=== PATIENT | female | born 1985 | race Caucasian/White ===

== ENCOUNTER → 2017-02-22 13:07 | Outpatient (CLI) | payer MEDICAID, SELFPAY ==
--- NOTE | 2017-02-22 13:30 | US_ITS ---
US thyroid HISTORY: Follow-up goiter ITS.REASON: GOITER ORDERING PHYSICIAN: Scottie Kilpatrick MD PATIENT AGE: 31 years COMPARISON: 11/16/2016 FINDINGS: Thyroid gland was again noted to have a multinodular appearance Right lobe: 4.5 x 1.6 x 1.6 cm with diffuse heterogeneous echogenicity. Left lobe: 4.5 x 1.5 x 1.7 cm with diffuse heterogeneous echogenicity Isthmus: Prominent at 6 mm in thickness Largest discrete nodule on the right is 1.7 x 0.8 cm. Largest discrete nodule in the left 1.5 x 0.8 cm.. Overall no change in the appearance of the thyroid gland. IMPRESSION: No change multinodular goiter
[2017-02-22 15:50] LABS: Thyroid Stimulating Hormone 2.16 uIU/ml (0.358-3.740)
[2017-02-23 07:13] LABS: Thyroid Peroxidase Antibodies 132 IU/mL (0-34)
[2017-02-26 13:40] LABS: Thyroglobulin Level 3.7 IU/mL (0.0-0.9)
[2017-03-02 09:13] LABS: Thyroglobulin by RIA 3.1 ng/mL (.)
== END ==
PROVIDERS: PCP Emergency Medicine; Visit Provider Otolaryngology
DX: E04.9 Nontoxic goiter, unspecified (principal)
CPT/HCPCS: 36415; 76536; 84439; 84443; 84481; 86376; 86800

== ENCOUNTER → 2017-03-15 11:40 | Outpatient (CLI) | payer MEDICAID, SELFPAY ==
[2017-03-15 12:12] LABS: Blood Urea Nitrogen 12 mg/dL (7-18); Creatinine,Serum 0.74 mg/dL (0.55-1.02); Estimated Glomerular Filt Rate 90 ml/min (>60); GFR (African American) 109 ML/MIN (>60)
--- NOTE | 2017-03-15 12:12 | CT_ITS ---
CT soft tissue neck w con INDICATION: ITS.REASON: TRACHEAL COMPRESSION, THYROID NODULE ORDERING PHYSICIAN: Scottie Kilpatrick MD PATIENT AGE: 31 years COMPARISON: Ultrasound of 02/22/2017 TECHNIQUE: Axial images are obtained with contrast. Sagittal and coronal reformatted images are reviewed as well. FINDINGS: The thyroid gland is heterogeneously enlarged on both sides and measures up to 4.4 x 2.6 x 1.3 cm longitudinal, AP, and transverse. The left lobe measures up to 4.8 x 2.1 x 1.3 cm longitudinal AP and transverse. The trachea is very slightly deviated toward the right by approximately 2 mm at the level of the thyroid gland. The trachea at the level of the sternal notch is also deviated toward the right by approximately 4 mm. The esophagus is midline There are scattered small cervical lymph nodes but no evidence of adenopathy in the neck or the superior mediastinum The epiglottis and glottic region are unremarkable. No obvious nasopharyngeal mass. There are small air-fluid levels in the maxillary sinuses bilaterally and mild mucosal thickening in the sphenoid sinuses. IMPRESSION: 1. Bilateral heterogeneously enlarged thyroid gland. 2. The trachea is somewhat deviated toward the right x 2 mm at the level of the thyroid gland and 4 mm at the level of the sternal notch. 3. The esophagus is midline at the level of the thyroid gland and situated to the left of the trachea in the superior mediastinum
--- NOTE | 2017-03-15 13:05 | HMH.ITSHM ---
LEVOTHYROXINE GABAPENTIN
== END ==
PROVIDERS: PCP Emergency Medicine; Visit Provider Otolaryngology
DX: J98.8 Other specified respiratory disorders (principal); E04.1 Nontoxic single thyroid nodule
CPT/HCPCS: 36415; 70491; 82565; 84520; Q9967

== ENCOUNTER 2017-03-24 15:17 | Emergency (ER) | payer MEDICAID, SELFPAY ==
[2017-03-24 15:18] VITALS: BP 145/90; PULSE 84; RESP 16; TEMP 36.6; O2SAT 100; BMI 32.8
--- NOTE | 2017-03-24 15:26 | XR_ITS ---
XR chest 2V Ordering Physician: Heber Rubio MD Patient Age: 31 years: Female HISTORY: ITS.REASON: chest pain Cough with chest pain. TECHNIQUE: PA and lateral chest COMPARISON :PA &. Lateral chest December 2015 Cough FINDINGS All lungs are clear with nothing definitely acute. If aspiration. Diaphragm is down to the anterior fifth and sixth rib. Adequate. Heart, tucker, mediastinal structures satisfactory. Calcified hilar nodes most evident at the right tucker and inferior to the right bronchus region reflect old granulomatous disease. No pneumothorax. No pleural effusion. Chest wall and T-spine unremarkable. Ribs unremarkable on this survey. IMPRESSION: Lungs clear nothing definitely acute . No significant change since previous 2016 CXR o . Old r granulomatous disease again noted.
[2017-03-24 15:35] LABS: Basophils % 0.4 % (0.1-2.0); Eosinophils # 0.1 K/mm3 (0.0-0.4); Eosinophils % 2.1 % (0.1-12.0); Hematocrit 37.7 % (37.0-47.0); Hemoglobin 12.8 g/dL (12.2-16.2); Lymphocytes # 2.1 K/mm3 (0.7-4.5); Lymphocytes % 31.9 K/mm3 (10-50); Mean Corpuscular HGB Conc 33.9 g/dL (31.8-35.4); Mean Corpuscular Hemoglobin 28.3 pg (27.0-31.2); Mean Corpuscular Volume 83.4 fl (81-99); Mean Platelet Volume 7.5 fl (7.4-10.4); Monocytes # 0.4 K/mm3 (0.1-1.0); Monocytes % 5.5 % (1.7-9.3); Neutrophils # 3.9 K/mm3 (1.8-7.8); Neutrophils % 60.1 % (37.0-80.0); Platelet Count 273 K/mm3 (142-424); Red Blood Count 4.52 M/mm3 (4.20-5.40); Red Cell Distribution Width 12.8 % (11.5-17.5); White Blood Count 6.5 K/mm3 (4.8-10.8)
[2017-03-24 16:01] LABS: Alanine Aminotransferase 32 U/L (12-78); Albumin Level 3.6 gm/dL (3.4-5.0); Albumin/Globulin Ratio 1.1 (1.1-1.8); Alkaline Phosphatase 73 U/L (46-116); Anion Gap 11.5 mEq/L (5-15); Aspartate Amino Transferase 24 U/L (15-37); Bilirubin,Total 0.4 mg/dL (0.2-1.0); Blood Urea Nitrogen 14 mg/dL (7-18); CKMB Relative Index 0.9 U/L (0-4.0); Calcium 8.4 mg/dL (8.5-10.1); Carbon Dioxide 26 mmol/L (21.0-32.0); Chloride 106 mmol/L (98-107); Creatine Kinase 54 U/L (26-192); Creatine Kinase MB < 0.5 mg/ml (0.0-3.6); Creatinine Clearance Estimated 115 mL/min (0-300); Creatinine,Serum 0.84 mg/dL (0.55-1.02); Estimated Glomerular Filt Rate 78 ml/min (>60); GFR (African American) 94 ML/MIN (>60); Globulin 3.4 gm/dl (1.3-3.2); Glucose 99 mg/dL (74-106); Potassium 3.5 mmoL/L (3.5-5.1); Sodium 140 mmol/L (136-145); Troponin I < 0.02 ng/ml (0.00-0.06)
--- NOTE | 2017-03-24 16:22 | HMH.EDCP ---
ED Disposition Clinical Impression: Chest pain in adult Disposition: Home, Self-Care Condition on Discharge: Good Instructions: DI for Chest Pain Additional Instructions: call pcp in am for follow up Referrals: Heber Rubio MD [Primary Care Provider] - - Critical Care Critical Care Time: No Attestation: On 03/24/17, the high probability of a clinically significant, sudden or life threatening deterioration of the following system(s) required my full and direct attention, intervention and personal management. The time I documented below is in addition to time spent performing reported procedures but includes the following listed in this critical care notation. Medical Decision Making - Medical Records Medical records reviewed: Yes: I reviewed the patient's medical records. Vital Signs: 03/24/17 15:18 Temperature 97.8 F Temperature Source Oral Pulse Rate [Left Brachial] 84 Respiratory Rate 16 Blood Pressure [Left Arm] 145/90 Blood Pressure Mean [Left Arm] 108 Blood Pressure Source [Left Arm] Automatic Cuff Blood Pressure Position [Left Arm] Sitting 02 Sat by Pulse Oximetry 100 Oxygen Delivery Method Room Air - Lab Data Lab results reviewed: Yes: I reviewed the patient's lab results. Lab Results 03/24/17 15:25: WBC 6.5, RBC 4.52, Hgb 12.8, Hct 37.7, MCV 83.4, MCH 28.3, MCHC 33.9, RDW 12.8, Plt Count 273, MPV 7.5, Neut % (Auto) 60.1, Lymph % (Auto) 31.9, Summers % (Auto) 5.5, Eos % (Auto) 2.1, Baso % (Auto) 0.4, Neut # (Auto) 3.9, Lymph # (Auto) 2.1, Summers # (Auto) 0.4, Eos # (Auto) 0.1, Baso # (Auto) 0.0 03/24/17 15:25: Sodium 140, Potassium 3.5, Chloride 106, Carbon Dioxide 26, Anion Gap 11.5, BUN 14, Creatinine 0.84, Estimated Creat Clear 115, Estimated GFR 78, Est GFR ( Amer) 94, Glucose 99, Calcium 8.4 L, Total Bilirubin 0.4, AST 24, ALT 32, Alkaline Phosphatase 73, Total Creatine Kinase 54, CK-MB (CK-2) < 0.5, CK-MB (CK-2) Rel Index 0.9, Troponin I < 0.02, Total Protein 7.0, Albumin 3.6, Globulin 3.4 H, Albumin/Globulin Ratio 1.1 Result diagrams: 03/24/17 15:25 03/24/17 15:25 - Radiology Data #1 Image(s): Chest Image Reviewed: Yes I reviewed the patient's radiology image Preliminary Findings: Normal/NAD - ECG Data Tracing #1 I reviewed this ECG and interpreted as documented below: Normal Sinus Rhythm: Yes Ischemic changes: non-specific ST-T wave changes - Thong Inquiry Pt receiving controlled substance: No Chest Pain HPI - General Stated Complaint: chest pain Time Seen by Provider: 03/24/17 16:22 Mode of Arrival: Ambulatory Source of Information: Patient, Significant Other, Medical Record Limitations: No Limitations Description of Symptoms (Recalled from ER Triage Doc. by RN): Pt advises she was sitting on the check around 1430 and started having some chest pains that were sharp in nature. Denies that the pain radiates anywhere and it comes and goes. - History of Present Illness HPI narrative: pt with chest pain described as sharp midline each day w/o known ht disease and no radiation - no fever or cough MD complaint: chest pain Onset (ago): day(s) Duration: intermittent Activity at onset: during rest Pain location: epigastric Severity: moderate Quality: sharp Pain radiation: none Exacerbating factors: nothing Risk Factors for CAD: Family Hx of CAD Treatments prior to or on arrival for Cardiac Chest Pain: none - ERICA Score Non-Stemi Age of patient: Less than 65 yrs Number of risk factors for CAD: Presence of less than 3 Prior coronary artery stenosis(seen in coronary angiography): Less than 50% ST-Segment deviation on ECG (more than 1 min): Absent Prior aspirin intake: No ASA in the last 7 days Severe anginal chest pain: Two or more episodes in last 24 hours Elevated cardiac markers(CK-MB or troponin): Absent Non-Stemi Risk Score: 1 - Related Data On Oral Contraceptives: No Home Medications Medication Instructions Recorded Confirmed gabapen
[2017-03-24 17:38] VITALS: BP 145/87; PULSE 69; RESP 16; TEMP 37; O2SAT 98
== END 2017-03-24 17:39 | disposition home or self-care (01) ==
PROVIDERS: Emergency Provider Emergency Medicine; PCP Emergency Medicine
DX: R07.89 Other chest pain (principal); I10 Essential (primary) hypertension; E03.9 Hypothyroidism, unspecified; F17.210 Nicotine dependence, cigarettes, uncomplicated; Z79.899 Other long term (current) drug therapy
CPT/HCPCS: 71046; 80053; 82550; 82553; 84484; 85025; 93005; 99282

== ENCOUNTER → 2017-03-27 09:44 | Outpatient (REF) | payer MEDICAID, SELFPAY ==
[2017-03-27 14:27] LABS: Chol/HDL Ratio 3.8 (1-3.5); Cholesterol 196 mg/dL (140-200); HDL Cholesterol 51 mg/dL (29-89); LDL Cholesterol 130 mg/dL (0-130); Triglycerides 77 mg/dL (30-200); VLDL Cholesterol 15 mg/dL (0-40)
== END ==
LOC: LAB 09:44
PROVIDERS: Visit Provider Emergency Medicine
DX: E03.9 Hypothyroidism, unspecified (principal); R01.1 Cardiac murmur, unspecified
CPT/HCPCS: 80061

== ENCOUNTER → 2017-04-02 13:01 | Outpatient (CLI) | payer MEDICAID, SELFPAY ==
--- NOTE | 2017-04-02 13:03 | CA_ITS ---
PROCEDURE: 2-D M-mode and color Doppler study INDICATIONS FOR THE TEST: Chest painX COPD Heart MurmurX Tobacco Smoking Palpitations Fatigue Syncope Edema Hypertension Diabetes Mellitus Rheumatic Fever SOBXDOE Obesity Hyperlipidemia Family History HD Additional History PATIENT INFORMATION HEIGHT: 60 WEIGHT:171 GENDER: Female B/P:120/80 2-D/M-MODE INTERPRETATION: 2-D MEASUREMENTS OBSERVED VALUES IN CMS Right Ventricular Dimension (RVDd) 2.0 Interventricular Septum (Thickness)(IVsd) .7 Left Ventricular Internal Dimensions(LVIDd) 5.1 Left Ventricular Posterior Wall (Thickness)(LVPWd) .8 Aortic Root 3.0 Aortic Cusp Separation 1.7 Left Atrial Dimensions (LAD) 3.4 2D 1. Left atrium is normal size, left ventricle is normal size, there is no concentric left ventricular hypertrophy, visually estimated ejection fraction 55% with no obvious regional wall motion abnormality. 2. The right atrium is normal size and contractility. 3. The aortic valve, mitral and tricuspid valve are structurally normal. 4. The pulmonic valve leaflets are thickened, leaflets are not well visualized, there appears to be restriction the leaflet mobility. 5. There is trivial pericardial effusion noted DOPPLER INTERROGATION: Doppler interrogation of the aortic, mitral, tricuspid and pulmonic valve reveals increased velocities across the pulmonic valve is 2.2 m/s resulting in a peak gradient of 20 mmHg which represents mild pulmonic stenosis, there is no pulmonic insufficiency. There is mild tricuspid regurgitation noted, calculated right ventricular systolic pressure is 28 mmHg, diastolic parameters are within normal range. CONCLUSION: 1. Normal left ventricular size, preserved left ventricular systolic function, visually estimated ejection fraction 55% with no obvious regional wall motion abnormality, diastolic parameters are within normal range. 2. Mild tricuspid regurgitation, calculated right ventricular systolic pressure is 28 mmHg 3. Thickened and calcified pulmonic valve, as described above, peak gradient across the valve is 20 mmHg which represents mild pulmonic stenosis, there is no significant pulmonic insufficiency seen. 4. Trivial pericardial effusion noted.
== END ==
PROVIDERS: PCP Emergency Medicine; Visit Provider Emergency Medicine
DX: R01.1 Cardiac murmur, unspecified (principal)
CPT/HCPCS: 93306

== ENCOUNTER → 2017-04-04 13:45 | Outpatient (CLI) | payer MEDICAID, SELFPAY ==
[2017-04-04 15:17] LABS: Alanine Aminotransferase 32 U/L (12-78); Albumin Level 3.7 gm/dL (3.4-5.0); Albumin/Globulin Ratio 1.2 (1.1-1.8); Alkaline Phosphatase 71 U/L (46-116); Anion Gap 11.6 mEq/L (5-15); Aspartate Amino Transferase 30 U/L (15-37); Bilirubin,Total 0.4 mg/dL (0.2-1.0); Blood Urea Nitrogen 10 mg/dL (7-18); Calcium 8.6 mg/dL (8.5-10.1); Carbon Dioxide 27 mmol/L (21.0-32.0); Chloride 106 mmol/L (98-107); Creatinine,Serum 0.71 mg/dL (0.55-1.02); Estimated Glomerular Filt Rate 95 ml/min (>60); GFR (African American) 115 ML/MIN (>60); Globulin 3.2 gm/dl (1.3-3.2); Glucose 86 mg/dL (74-106); Potassium 3.6 mmoL/L (3.5-5.1); Sodium 141 mmol/L (136-145); Total Protein,Serum 6.9 gm/dL (6.4-8.2)
[2017-04-04 15:32] LABS: HCG Qualitative, Serum Negative (Negative)
[2017-04-04 15:37] LABS: Hemoglobin 12.8 g/dL (12.2-16.2); Red Blood Count 4.56 M/mm3 (4.20-5.40); White Blood Count 6.2 K/mm3 (4.8-10.8)
[2017-04-04 15:38] LABS: Basophils % 0.7 % (0.1-2.0); Eosinophils % 1.4 % (0.1-12.0); Hematocrit 38.7 % (37.0-47.0); Mean Corpuscular HGB Conc 33.1 g/dL (31.8-35.4); Mean Corpuscular Volume 84.8 fl (81-99); Mean Platelet Volume 8.1 fl (7.4-10.4); Neutrophils % 60.4 % (37.0-80.0); Platelet Count 258 K/mm3 (142-424)
[2017-04-04 15:40] LABS: Lymphocytes # 1.9 K/mm3 (0.7-4.5); Lymphocytes % 33.1 K/mm3 (10-50); Neutrophils # 3.7 K/mm3 (1.8-7.8)
[2017-04-04 15:41] LABS: Eosinophils # 0.1 K/mm3 (0.0-0.4); Monocytes # 0.4 K/mm3 (0.1-1.0)
== END ==
PROVIDERS: PCP Emergency Medicine; Visit Provider Otolaryngology
DX: Z01.810 Encounter for preprocedural cardiovascular examination (principal); Z01.812 Encounter for preprocedural laboratory examination
CPT/HCPCS: 36415; 80053; 84703; 85025

== ENCOUNTER → 2017-04-19 10:32 | Outpatient (CLI) | payer MEDICAID, SELFPAY ==
[2017-04-19 11:09] LABS: Calcium 8.7 mg/dL (8.5-10.1); Free T4 (Free Thyroxine) 1.75 ng/dl (0.76-1.46); Thyroid Stimulating Hormone 0.41 uIU/ml (0.358-3.740)
== END ==
PROVIDERS: Visit Provider Otolaryngology
DX: Z98.890 Other specified postprocedural states (principal)
CPT/HCPCS: 36415; 82310; 84439; 84443

== ENCOUNTER → 2017-05-14 14:18 | Outpatient (CLI) | payer MEDICAID, SELFPAY ==
[2017-05-14 15:39] LABS: T4 (Thyroxine) 6.1 ug/dl (4.7-13.3); Thyroid Stimulating Hormone 7.23 uIU/ml (0.358-3.740)
== END ==
PROVIDERS: Visit Provider Otolaryngology
DX: E03.9 Hypothyroidism, unspecified (principal)
CPT/HCPCS: 36415; 84436; 84443

== ENCOUNTER → 2017-07-04 13:44 | Outpatient (CLI) | payer MEDICAID, SELFPAY ==
[2017-07-04 13:47] LABS: Microscopic, Urine URINE MICROSCOPIC (MICROSCOPIC)
[2017-07-04 14:07] LABS: Appearance,Urine CLEAR (Clear); Bilirubin,Urine Negative (Negative); Blood, Urine 2+ (Negative); Color,Urine YELLOW (Yellow); Glucose,Urine (UA) Negative (Negative); Ketones,Urine Negative (Negative); Leukocyte Esterase,Urine TRACE (Negative); Nitrate,Urine Negative (Negative); Protein,Urine Negative (Negative); Specific Gravity, Urine <= 1.005 (1.005-1.030)
[2017-07-04 14:10] LABS: Urine Pregnancy, HCG Qual. Negative (Negative)
[2017-07-04 14:13] LABS: Basophils % 0.3 % (0.1-2.0); Eosinophils # 0.1 K/mm3 (0.0-0.4); Eosinophils % 2.1 % (0.1-12.0); Hematocrit 40.3 % (37.0-47.0); Hemoglobin 13.5 g/dL (12.2-16.2); Lymphocytes # 2.1 K/mm3 (0.7-4.5); Lymphocytes % 34.7 K/mm3 (10-50); Mean Corpuscular HGB Conc 33.5 g/dL (31.8-35.4); Mean Corpuscular Hemoglobin 27.1 pg (27.0-31.2); Mean Corpuscular Volume 80.8 fl (81-99); Mean Platelet Volume 7.1 fl (7.4-10.4); Monocytes # 0.3 K/mm3 (0.1-1.0); Monocytes % 4.9 % (1.7-9.3); Neutrophils # 3.5 K/mm3 (1.8-7.8); Neutrophils % 57.9 % (37.0-80.0); Platelet Count 321 K/mm3 (142-424); Red Blood Count 4.99 M/mm3 (4.20-5.40); Red Cell Distribution Width 13.2 % (11.5-17.5)
[2017-07-04 14:28] LABS: Bacteria,Urine Trace /lpf; RBC,Urine Occasional #/hpf (0-3); WBC,Urine Occasional #/hpf (0-3)
[2017-07-04 15:15] LABS: Alanine Aminotransferase 17 U/L (12-78); Albumin Level 3.9 gm/dL (3.4-5.0); Albumin/Globulin Ratio 1.1 (1.1-1.8); Alkaline Phosphatase 79 U/L (46-116); Anion Gap 13.3 mEq/L (5-15); Aspartate Amino Transferase 23 U/L (15-37); Bilirubin,Total 0.6 mg/dL (0.2-1.0); Blood Urea Nitrogen 7 mg/dL (7-18); Calcium 9.3 mg/dL (8.5-10.1); Carbon Dioxide 27 mmol/L (21.0-32.0); Chloride 103 mmol/L (98-107); Creatinine,Serum 0.83 mg/dL (0.55-1.02); Estimated Glomerular Filt Rate 79 ml/min (>60); GFR (African American) 96 ML/MIN (>60); Globulin 3.5 gm/dl (1.3-3.2); Glucose 91 mg/dL (74-106); Potassium 4.3 mmoL/L (3.5-5.1); Sodium 139 mmol/L (136-145); Total Protein,Serum 7.4 gm/dL (6.4-8.2)
== END ==
PROVIDERS: Visit Provider Obstetrics & Gynecology
DX: Z01.818 Encounter for other preprocedural examination (principal); N93.8 Other specified abnormal uterine and vaginal bleeding
CPT/HCPCS: 36415; 80053; 81001; 81025; 85025

== ENCOUNTER → 2017-08-17 10:55 | Outpatient (CLI) | payer MEDICAID, SELFPAY ==
[2017-08-17 13:06] LABS: Free T4 (Free Thyroxine) 1.62 ng/dl (0.76-1.46); Thyroid Stimulating Hormone 0.05 uIU/ml (0.358-3.740)
== END ==
PROVIDERS: Visit Provider Otolaryngology
DX: E03.9 Hypothyroidism, unspecified (principal)
CPT/HCPCS: 36415; 84439; 84443

== ENCOUNTER → 2017-11-11 09:50 | Outpatient (CLI) | payer MEDICAID, SELFPAY ==
[2017-11-11 09:53] LABS: Microscopic, Urine URINE MICROSCOPIC (MICROSCOPIC)
[2017-11-11 10:08] LABS: Basophils % 0.7 % (0.1-2.0); Eosinophils # 0.2 K/mm3 (0.0-0.4); Eosinophils % 2.6 % (0.1-12.0); Hematocrit 40.1 % (37.0-47.0); Hemoglobin 13.1 g/dL (12.2-16.2); Lymphocytes # 1.6 K/mm3 (0.7-4.5); Lymphocytes % 26.3 K/mm3 (10-50); Mean Corpuscular HGB Conc 32.7 g/dL (31.8-35.4); Mean Corpuscular Hemoglobin 26.5 pg (27.0-31.2); Mean Platelet Volume 6.8 fl (7.4-10.4); Monocytes # 0.4 K/mm3 (0.1-1.0); Monocytes % 5.9 % (1.7-9.3); Neutrophils # 3.9 K/mm3 (1.8-7.8); Neutrophils % 64.5 % (37.0-80.0); Platelet Count 340 K/mm3 (142-424); Red Blood Count 4.96 M/mm3 (4.20-5.40); Red Cell Distribution Width 13.6 % (11.5-17.5); White Blood Count 6.1 K/mm3 (4.8-10.8)
[2017-11-11 10:35] LABS: Appearance,Urine CLEAR (Clear); Bilirubin,Urine Negative (Negative); Blood, Urine 1+ (Negative); Color,Urine YELLOW (Yellow); Glucose,Urine (UA) Negative (Negative); Ketones,Urine Negative (Negative); Leukocyte Esterase,Urine Negative (Negative); Nitrate,Urine Negative (Negative); PH,Urine 8.5 (5.0-8.5); Protein,Urine Negative (Negative); Specific Gravity, Urine 1.015 (1.005-1.030)
[2017-11-11 11:02] LABS: Bacteria,Urine Trace /lpf; Squamous Epithelial Cell,Urine Occasional #/hpf (0-5)
[2017-11-11 11:22] LABS: HCG Qualitative, Serum Negative (Negative)
[2017-11-11 11:27] LABS: Alanine Aminotransferase 27 U/L (12-78); Albumin/Globulin Ratio 1.1 (1.1-1.8); Alkaline Phosphatase 98 U/L (46-116); Anion Gap 12.2 mEq/L (5-15); Aspartate Amino Transferase 15 U/L (15-37); Bilirubin,Total 0.4 mg/dL (0.2-1.0); Blood Urea Nitrogen 12 mg/dL (7-18); Carbon Dioxide 28 mmol/L (21.0-32.0); Chloride 106 mmol/L (98-107); Creatinine,Serum 0.93 mg/dL (0.55-1.02); Estimated Glomerular Filt Rate 69 ml/min (>60); GFR (African American) 84 ML/MIN (>60); Globulin 3.8 gm/dl (1.3-3.2); Glucose 97 mg/dL (74-106); Potassium 4.2 mmoL/L (3.5-5.1); Sodium 142 mmol/L (136-145); Total Protein,Serum 7.8 gm/dL (6.4-8.2)
== END ==
PROVIDERS: PCP Emergency Medicine; Visit Provider Obstetrics & Gynecology
DX: Z01.818 Encounter for other preprocedural examination (principal); N93.8 Other specified abnormal uterine and vaginal bleeding
CPT/HCPCS: 36415; 80053; 81001; 84703; 85025

== ENCOUNTER 2017-11-14 06:04 | Observation (INO) ==
--- NOTE | 2017-11-14 06:48 | Progress Note ---
[facility] Anesthesia Checklist - Structural Data Admitted From: Home Planned Operative Procedure/s: [facility] Consent for Planned Operative Procedure(s) Verified: Yes - Airway Assessment C-Spine Mobility Assessed: Yes TMJ Mobility Assessed: Yes Dentition: Edentulous - Neurological Assessment Level of Consciousness: Awake, Alert, Appropriate - Anesthesia Plan Anesthesia Risk discussed: Yes Anesthesia Plan: Verified ASA Class: II Anesthesia Type: General [facility] History I have reviewed the patient's past medical history: Yes Medical History: Reports:: Hypertension Denies:: Cancer, Diabetes Mellitus Type 1, Diabetes Mellitus Type 2, Internal Pacemaker, MRSA, Seizures Other Medical History: Reports: Hypothyroidism, Other. Denies: Blood Transfusion Reaction (N/A) Laterality Cases: Bilateral: Other Other Surgeries: Yes: Cardiac Surgery, Thyroidectomy, Other. No: Pacemaker Amputation: No Fractures: No - *Social History Educational Level: Attended Grade School Smoking Status: Never smoker Alcohol Intake: never Alcohol Intake Frequency:: other Substance Use Type: denies use Occupational Status: unemployed Housing: apartment Household Members: significant other - Psychiatric History Expresses thoughts of harming self/others: None Suicide Plan Description: No Plan *Family Hx:: Cancer, Diabetes, Heart Attack, Thyroid Disorder, Hypertension
--- NOTE | 2017-11-14 08:38 | Operative Note ---
Date of procedure: 11/14/17 Pre-op Diagnosis:: Dysfunctional uterine bleeding Post-op Diagnosis:: 1. Dysfunctional uterine bleeding. 2. Cervical polyp. Procedure performed:: Total vaginal hysterectomy. Surgeon:: Sampson Hamilton MD Proofing Machine Operator(s):: REYNOLD Woodward GASTROENTEROLOGY NURSE:: Other (MIRTHA Rodriguez) Anesthesia: GETA Estimated blood loss (mL): 300 Operative findings:: 1. Cervical polyp. 2. Dysfunctional uterine bleeding. Operative note:: After the patient was prepped and draped in usual fashion and general anesthesia was administered, examination under anesthesia revealed a boggy anteverted uterus, with no adnexal masses. A weighted speculum was placed within the posterior fourchette of the vagina, and the cervix was grasped with a double- tooth tenaculum and retracted toward the introitus. The cervix was circumcised with a knife, and the vaginal mucosa was sharply and bluntly dissected free. A posterior colpotomy incision was made with Arnaud scissors, and the long lip of the weighted speculum was placed within the posterior peritoneum. The uterosacral ligaments on either side were Dhruv clamped, cut, and Dhruv sutured with #1 Vicryl, as were the cardinal ligaments and uterine vessels. The uterus was then flipped anteriorly and the ovarian ligaments were cross-clamped and cut, thus removing the uterine specimen. These pedicles were Dhruv sutured and then free-tied with #1 Vicryl. The tubes and ovaries were inspected and found to be normal, and remain in situ.The posterior vaginal cuff was then run and locked for hemostasis and to reduce the enterocoele, in a Montoya fashion. The anterior peritoneum was grasped with a long Allis clamp, and closed with a running pursestring suture of 0 Vicryl, and pulled tight. The vaginal cuff was closed with an anteroposterior running lock suture of #1 Vicryl. The instruments were removed. The sponge and needle counts correct. The urine was clear in Lake catheter. The estimated blood loss was 300 cc. The patient tolerated the procedure well, and was taken to PACU in excellent condition. She will be observed overnight. Condition: stable Disposition: PACU Specimens:: Uterus Complications:: None
--- NOTE | 2017-11-14 08:46 | Progress Note ---
[facility] Anesthesia Record Part I Intake, IV Amount: 1,000 Estimated blood loss (mL): 250 Urine output (mL): 500 Blood Products used (#): none Blood Pressure: 133/102 SaO2: 96 Pulse Rate: 103 Respiratory Rate: 10 Temperature: 97.7 F Patient is:: Drowsy, Nasal O2, Oral/Nasal airway, Stable Stable to PACU at:: 08:40
--- NOTE | 2017-11-14 08:47 | Progress Note ---
[facility] Anesthesia Record Part II Discharge Time: 09:10 Destination: Medical Surgical Department PACU nurse assessment reviewed?: Yes Patient Condition:: Good Anesthesia Complications:: None
[2017-11-14 09:49] LABS: Hematocrit 34.2 % (37.0-47.0); Hemoglobin 11.2 g/dL (12.2-16.2)
--- NOTE | 2017-11-14 13:05 | Progress Note ---
Internal Medicine - PN: Subj *Date: 11/14/17 *Time: 13:04 (This is day of surgery. Surgery has been explained to the karan ent. She is afebrile. Vital signs the. Urine output is good. Impression: Stable.) Exam Vital signs and Labs for Last 24 Hours: Temp Pulse Resp BP Pulse Ox 97.1 F L 84 16 120/86 96 11/14/17 12:00 11/14/17 12:41 11/14/17 12:41 11/14/17 12:41 11/14/17 12:41 Laboratory Results - last 24 hr 11/14/17 09:35: Hgb 11.2 L, Hct 34.2 L I & O for Last 24 hours: Intake & Output 11/12/17 11/13/17 11/14/17 11/15/17 11:59 11:59 11:59 11:59 Intake Total 1310 / 1310 Output Total 550 / 550 Balance 760 / 760 Weight 170 lb
[2017-11-15 06:43] LABS: Hematocrit 30.5 % (37.0-47.0); Hemoglobin 10.1 g/dL (12.2-16.2)
--- NOTE | 2017-11-15 07:08 | Progress Note ---
Internal Medicine - PN: Subj *Date: 11/15/17 *Time: 07:05 (This is postop day 1. The patient is afebrile. Vital signs st able. Abdomen soft. Lake has been removed, but she has not yet voided. Globin 10.1 g, but clinically stable. Plan is to ambulate the patient and, if she voids well, possibly discharge later today.) Exam Vital signs and Labs for Last 24 Hours: Temp Pulse Resp BP Pulse Ox 99.0 F 75 18 100/67 96 11/15/17 04:15 11/15/17 04:15 11/15/17 04:15 11/15/17 04:15 11/15/17 05:45 Laboratory Results - last 24 hr 11/14/17 07:25: Urine Color Straw, Urine Appearance Clear, Urine pH 6.0, Ur Specific [place] <= 1.005, Urine Protein Negative, Urine Glucose (UA) Negative, Urine Ketones Negative, Urine Blood Negative, Urine Nitrate Negative, Urine Bilirubin Negative, Urine Urobilinogen 0.2, Ur Leukocyte Esterase Negative, Urine RBC Occasional, Urine WBC None, Ur Squamous Epith Cells None, Urine Bacteria Trace 11/14/17 09:35: Hgb 11.2 L, Hct 34.2 L 11/15/17 05:39: Hgb 10.1 L, Hct 30.5 L I & O for Last 24 hours: Intake & Output 11/12/17 11/13/17 11/14/17 11/15/17 11:59 11:59 11:59 11:59 Intake Total 1310 / 1310 3427 / 3427 Output Total 550 / 550 1100 / 1100 Balance 760 / 760 2327 / 2327 Weight 170 lb
--- NOTE | 2017-11-15 09:10 | Pharmacy Consult Notes ---
[facility] Pharmacy VTE Monitoring - Patient Demographics Admission date: 11/15/17 Report Date: 11/15/17 Time: 09:10 Allergies/Adverse Reactions: Patient Allergies acetaminophen [From Tylenol-Codeine #3] Allergy (Verified 11/14/17 06:20) Nausea codeine Adverse Reaction (Verified 11/14/17 06:20) Nausea Height: 1.63 m Weight: 77.111 kg - VTE Risk Labs: VTE Related Lab Results Hgb 10.1 g/dL (12.2-16.2) L 11/15/17 05:39 Hct 30.5 % (37.0-47.0) L 11/15/17 05:39 Clinical Trial Participant: No - Prophylaxis VTE Prophylaxis Ordered?: Yes Types of VTE Prophylaxis: IPCS Knee High Location of Applied Device: Refused
--- NOTE | 2017-11-15 11:39 | Progress Note ---
Internal Medicine - PN: Subj *Date: 11/15/17 *Time: 11:38 (Patient is doing well. She has now voided 1450 cc. She is afe brile. She is anxious for discharge, and will be discharged today.) Exam Vital signs and Labs for Last 24 Hours: Temp Pulse Resp BP Pulse Ox 98.9 F 87 18 134/81 97 11/15/17 07:45 11/15/17 07:45 11/15/17 07:45 11/15/17 07:45 11/15/17 07:45 Laboratory Results - last 24 hr 11/14/17 07:25: Urine Color Straw, Urine Appearance Clear, Urine pH 6.0, Ur Specific [place] <= 1.005, Urine Protein Negative, Urine Glucose (UA) Negative, Urine Ketones Negative, Urine Blood Negative, Urine Nitrate Negative, Urine B ilirubin Negative, Urine Urobilinogen 0.2, Ur Leukocyte Esterase Negative, Urine RBC Occasional, Urine WBC None, Ur Squamous Epith Cells None, Urine Bacteria Trace 11/15/17 05:39: Hgb 10.1 L, Hct 30.5 L I & O for Last 24 hours: Intake & Output 11/12/17 11/13/17 11/14/17 11/15/17 11:59 11:59 11:59 11:59 Intake Total 1310 / 1310 3427 / 3427 Output Total 550 / 550 2550 / 2550 Balance 760 / 760 877 / 877 Weight 170 lb 170 lb
--- NOTE | 2017-11-15 11:41 | Discharge Summary ---
General - General Admission date:: 11/14/17 Discharge date: 11/15/17 (This 31-year-old white female was admitted for definitive treatment of dysfunctional uterine bleeding. On the date of admission, she was taken to the operating room, where she underwent a total vaginal hysterectomy, without complications. Both adnexa remain in situ. She was also noted to have a cervical polyp at the time of surgery. Hemoglobin on admission was 11.2 g; postoperatively it is 10.1 g, but she is clinically stable. She is eating and ambulating and passing flatus. Her Lake has been removed, and she is voiding well. She is discharged home on the first postoperative day on Percocet 5/325 (#30), 1 p.o. every 4-6 hours as needed pain. She is given appropriate instructions as to diet and exercise, and she is to return to the office in 2 weeks for follow-up. The patient is a smoker, but refuses smoking cessation patches.) Objective Vital signs: Temp Pulse Resp BP Pulse Ox 98.9 F 87 18 134/81 97 11/15/17 07:45 11/15/17 07:45 11/15/17 07:45 11/15/17 07:45 11/15/17 07:45 Results Labs on day of discharge: Labs from last 24 hours 11/15/17 11/14/17 05:39 07:25 Hgb 10.1 L Hct 30.5 L Urine Color Straw Urine Appearance Clear Urine pH 6.0 Ur Specific [place] <= 1.005 Urine Protein Negative Urine Glucose (UA) Negative Urine Ketones Negative Urine Blood Negative Urine Nitrate Negative Urine Bilirubin Negative Urine Urobilinogen 0.2 Ur Leukocyte Esterase Negative Urine RBC Occasional Urine WBC None Ur Squamous Epith Cells None Urine Bacteria Trace Discharge Plan - Patient Discharge Instructions Additional Instructions: No heavy lifting, nothing in the vagina for six weeks and no driving until cleared by Doctor Hamilton. Patient Instructions: DI for Hysterectomy, DI for Vaginal Hysterectomy - Follow up Plan Follow up with: Sampson Hamilton MD [Staff Physician] - 11/29/17 8:00 am Home Medications: Home Medications Medication Instructions Recorded Confirmed Type levothyroxine 125 mcg capsule 112 mcg PO DAILY cap 10/01/17 11/14/17 History Prescriptions/Medication Reconciliation: No Action levothyroxine 125 mcg capsule 112 mcg PO DAILY cap gabapentin 600 mg tablet 600 mg PO BID #60 tab
== END 2017-11-15 13:15 | disposition home or self-care (01) ==
LOC: OB 06:04 → OR 06:04
PROVIDERS: ADMIT Obstetrics & Gynecology; ATTEND Obstetrics & Gynecology

== ENCOUNTER → 2017-12-20 10:24 | Outpatient (CLI) | payer MEDICAID, SELFPAY ==
[2017-12-20 13:16] LABS: Thyroid Stimulating Hormone 1.29 uIU/ml (0.358-3.740)
== END ==
PROVIDERS: Visit Provider Obstetrics & Gynecology
DX: E03.9 Hypothyroidism, unspecified (principal)
CPT/HCPCS: 36415; 84443

== ENCOUNTER → 2018-01-31 08:48 | Outpatient (CLI) | payer MEDICAID, SELFPAY ==
[2018-01-31 10:43] LABS: Free T4 (Free Thyroxine) 1.09 ng/dl (0.76-1.46)
== END ==
PROVIDERS: Visit Provider Otolaryngology
DX: E03.9 Hypothyroidism, unspecified (principal)
CPT/HCPCS: 36415; 84439; 84443

== ENCOUNTER → 2018-04-02 10:13 | Outpatient (CLI) | payer MEDICAID, SELFPAY ==
--- NOTE | 2018-04-02 10:15 | CA_ITS ---
PROCEDURE: 2-D M-mode and color Doppler study INDICATIONS FOR THE TEST: Chest pain COPD Heart Murmur+ Tobacco Smoking Palpitations Fatigue Syncope Edema Hypertension Diabetes Mellitus Rheumatic Fever SOB DAVID Obesity Hyperlipidemia Family History HD Additional History PULMONIC STENOSIS PATIENT INFORMATION HEIGHT: 64 WEIGHT:175 GENDER: Female B/P:126/83 2-D/M-MODE INTERPRETATION: 2-D MEASUREMENTS OBSERVED VALUES IN CMS Right Ventricular Dimension (RVDd) 1.3 Interventricular Septum (Thickness)(IVsd) 0.6 Left Ventricular Internal Dimensions(LVIDd) 4.9 Left Ventricular Posterior Wall (Thickness)(LVPWd) 0.8 Aortic Root 2.0 Aortic Cusp Separation 1.5 Left Atrial Dimensions (LAD) 2.8 2D 1. Left atrium is normal size, left ventricle is normal size, there is no concentric left ventricular hypertrophy, visually estimated ejection fraction 55% with no regional wall motion abnormality. 2. The right atrium and right ventricle are normal size and contractility. 3. The aortic valve is minimally thickened and fibrosed. 4. The mitral and tricuspid valve are grossly normal. 5. The pulmonic valve is poorly visualized. 6. No significant pericardial effusion noted. DOPPLER INTERROGATION: 1. The aortic outflow velocities within normal range, there is no aortic stenosis aortic insufficiency. 2. The mitral inflow velocities within normal range, there is no mitral stenosis, there is mild mitral regurgitation. Diastolic parameters are within normal range. 3. The maximum pulmonic out flow velocity and poor study is 2.7 m/s, resulting in a peak instantaneous gradient of 30 mmHg, this represents mild pulmonic stenosis, there is no significant pulmonic insufficiency seen. 4. There is mild tricuspid regurgitation noted, tricuspid regurgitation jet velocity is inadequate for calculation of the right ventricular systolic pressure. CONCLUSION: 1. Normal left ventricular size, preserved left ventricular systolic function, visually estimated ejection fraction 55% with no regional wall motion abnormality, diastolic parameters are within normal range. 2. The maximum gradient across the pulmonic valve is 13 mmHg this represents mild pulmonic stenosis, there is no significant pulmonic insufficiency seen. 3. Mild tricuspid regurgitation. 4. No significant pericardial effusion noted.
== END ==
PROVIDERS: PCP Emergency Medicine; Visit Provider Emergency Medicine
DX: I37.0 Nonrheumatic pulmonary valve stenosis (principal)
CPT/HCPCS: 93306

== ENCOUNTER → 2018-05-12 14:09 | Outpatient (CLI) | payer MEDICAID, SELFPAY | PROVIDERS: PCP Emergency Medicine; Visit Provider Internal Medicine Cardiovascular Disease | DX: R07.9 Chest pain, unspecified (principal); I37.0 Nonrheumatic pulmonary valve stenosis; R06.09 Other forms of dyspnea; E03.9 Hypothyroidism, unspecified; E66.9 Obesity, unspecified; Z68.30 Body mass index [BMI] 30.0-30.9, adult | CPT/HCPCS: 93017 ==

== ENCOUNTER → 2019-01-02 13:31 | Outpatient (CLI) | payer OTHER, SELFPAY ==
[2019-01-02 13:37] LABS: Microscopic, Urine URINE MICROSCOPIC (MICROSCOPIC)
[2019-01-02 13:44] LABS: Appearance,Urine CLEAR (Clear); Bilirubin,Urine Negative (Negative); Blood, Urine Negative (Negative); Color,Urine YELLOW (Yellow); Glucose,Urine (UA) Negative (Negative); Ketones,Urine Negative (Negative); Leukocyte Esterase,Urine Negative (Negative); Nitrate,Urine Negative (Negative); Protein,Urine Negative (Negative)
[2019-01-02 13:50] LABS: RBC,Urine Occasional #/hpf (0-3); Squamous Epithelial Cell,Urine 20-50 #/hpf (0-5)
[2019-01-02 14:24] LABS: Alanine Aminotransferase 15 U/L (12-78); Albumin Level 3.8 gm/dL (3.4-5.0); Alkaline Phosphatase 90 U/L (46-116); Anion Gap 10.7 mEq/L (5-15); Aspartate Amino Transferase 24 U/L (15-37); Bilirubin,Total 0.4 mg/dL (0.2-1.0); Blood Urea Nitrogen 10 mg/dL (7-18); Calcium 8.6 mg/dL (8.5-10.1); Carbon Dioxide 27 mmol/L (21.0-32.0); Chloride 104 mmol/L (98-107); Chol/HDL Ratio 4.4 (1-3.5); Cholesterol 233 mg/dL (140-200); Estimated Glomerular Filt Rate 82 ml/min (>60); GFR (African American) 99 ML/MIN (>60); Globulin 3.7 gm/dl (1.3-3.2); Glucose 96 mg/dL (74-106); HDL Cholesterol 53 mg/dL (29-89); LDL Cholesterol 159 mg/dL (0-130); Potassium 3.7 mmoL/L (3.5-5.1); Sodium 138 mmol/L (136-145); T4 (Thyroxine) 13.5 ug/dl (4.7-13.3); Thyroid Stimulating Hormone 0.39 uIU/ml (0.358-3.740); Total Protein,Serum 7.5 gm/dL (6.4-8.2); Triglycerides 107 mg/dL (30-200); VLDL Cholesterol 21 mg/dL (0-40)
[2019-01-02 14:33] LABS: Basophils % 0.5 % (0.1-2.0); Eosinophils # 0.1 K/mm3 (0.0-0.4); Eosinophils % 1.8 % (0.1-12.0); Hematocrit 40.9 % (37.0-47.0); Hemoglobin 13.5 g/dL (12.2-16.2); Lymphocytes # 2.1 K/mm3 (0.7-4.5); Lymphocytes % 33.8 % (10-50); Mean Corpuscular Hemoglobin 27.2 pg (27.0-31.2); Mean Corpuscular Volume 82.4 fl (81-99); Monocytes # 0.4 K/mm3 (0.1-1.0); Monocytes % 5.6 % (1.7-9.3); Neutrophils # 3.7 K/mm3 (1.8-7.8); Neutrophils % 58.3 % (37.0-80.0); Platelet Count 323 K/mm3 (142-424); Red Blood Count 4.96 M/mm3 (4.20-5.40); Red Cell Distribution Width 13.8 % (11.5-17.5); White Blood Count 6.4 K/mm3 (4.8-10.8)
[2019-01-03 18:13] LABS: Vitamin D 25 Hydroxy 26.4 ng/mL (30.0-100.0)
== END ==
PROVIDERS: Visit Provider Emergency Medicine
DX: N39.0 Urinary tract infection, site not specified (principal); E07.9 Disorder of thyroid, unspecified; G62.9 Polyneuropathy, unspecified; E55.9 Vitamin D deficiency, unspecified
CPT/HCPCS: 80053; 80061; 81001; 82652; 84436; 84443; 85025; 87086

== ENCOUNTER → 2019-03-09 12:29 | Outpatient (CLI) | payer OTHER, SELFPAY ==
[2019-03-09 14:12] LABS: Free T4 (Free Thyroxine) 1.55 ng/dl (0.76-1.46); Thyroid Stimulating Hormone 0.57 uIU/ml (0.358-3.740)
== END ==
PROVIDERS: Visit Provider Otolaryngology
DX: E03.9 Hypothyroidism, unspecified (principal)
CPT/HCPCS: 36415; 84439; 84443

== ENCOUNTER → 2022-03-26 23:30 | Outpatient (CLI) | payer OTHER, SELFPAY | PROVIDERS: PCP Nurse Practitioner; Visit Provider Nurse Practitioner | DX: R50.9 Fever, unspecified (principal); R05.3 Chronic cough ==

== ENCOUNTER → 2022-03-27 11:00 | Outpatient (CLI) | payer OTHER, SELFPAY ==
[2022-03-27 10:07] LABS: Coronavirus 19, PCR Not Detected (NotDetected); Influenza A, PCR Not Detected (NotDetected); Influenza B, PCR Not Detected (NotDetected)
== END ==
PROVIDERS: PCP Nurse Practitioner; Visit Provider Nurse Practitioner
DX: J06.9 Acute upper respiratory infection, unspecified (principal)
CPT/HCPCS: C9803; U0003; U0005

== ENCOUNTER → 2022-10-29 23:51 | Outpatient (CLI) | payer OTHER, SELFPAY ==
[2022-10-29 19:15] LABS: Basophils # 0.1 K/mm3 (0-0.2); Basophils % 0.6 % (0.1-2.0); Eosinophils # 0.2 K/mm3 (0.0-0.4); Eosinophils % 1.7 % (0.1-12.0); Hematocrit 46.6 % (37.0-47.0); Hemoglobin 14.8 g/dL (12.2-16.2); Lymphocytes # 2.8 K/mm3 (0.7-4.5); Mean Corpuscular HGB Conc 31.8 g/dL (31.8-35.4); Mean Corpuscular Hemoglobin 29.6 pg (27.0-31.2); Mean Corpuscular Volume 93.2 fl (81-99); Mean Platelet Volume 8.7 fl (7.4-10.4); Monocytes # 0.6 K/mm3 (0.1-1.0); Monocytes % 7.4 % (1.7-9.3); Neutrophils % 58.2 % (37.0-80.0); Platelet Count 382 K/mm3 (142-424); Red Cell Distribution Width 14.4 % (11.5-17.5); White Blood Count 8.6 K/mm3 (4.8-10.8)
[2022-10-29 19:27] LABS: Alanine Aminotransferase 20 U/L (12-78); Albumin Level 4.7 g/dl (3.5-5.0); Albumin/Globulin Ratio 1.3 (1.1-1.8); Alkaline Phosphatase 84 U/L (38-126); Anion Gap 16.6 mEq/L (5-15); Aspartate Amino Transferase 38 U/L (14-36); Bilirubin,Total 0.6 mg/dl (0.2-1.3); Blood Urea Nitrogen 26 mg/dl (7-17); Calcium 8.8 mg/dl (8.4-10.2); Carbon Dioxide 29 mmol/L (22.0-30.0); Chloride 95 mmol/L (98-107); Chol/HDL Ratio 7.5 (1-3.5); Cholesterol 298 mg/dl (140-200); Estimated Glomerular Filt Rate 50 ml/min (>60); GFR (African American) 61 ML/MIN (>60); Globulin 3.6 g/dL (1.3-3.2); Glucose 97 mg/dl (74-100); HDL Cholesterol 40 mg/dl (40-60); Potassium 3.6 mmoL/L (3.5-5.1); Sodium 137 mmol/L (136-145); Total Protein,Serum 8.3 g/dl (6.3-8.2); Triglycerides 115 mg/dl (30-150); VLDL Cholesterol 23 mg/dL (0-40)
== END ==
PROVIDERS: PCP Family Medicine; Visit Provider Family Medicine
DX: Z00.00 Encounter for general adult medical examination without abnormal findings (principal); Z79.899 Other long term (current) drug therapy
CPT/HCPCS: 80053; 80061; 84443; 85025

== ENCOUNTER 2023-02-28 19:37 | Outpatient (CLI) | payer OTHER, SELFPAY | END 2023-02-28 23:59 | LOC: LAB.DROPOF 19:38 | PROVIDERS: PCP Nurse Practitioner; Visit Provider Nurse Practitioner | DX: N10 Acute pyelonephritis (principal); B96.29 Other Escherichia coli [E. coli] as the cause of diseases classified elsewhere | CPT/HCPCS: 87086 ==

== ENCOUNTER 2023-04-29 18:24 | Outpatient (CLI) | payer OTHER, SELFPAY ==
[2023-04-29 18:47] LABS: Alanine Aminotransferase 21 U/L (12-78); Albumin Level 4.3 g/dl (3.5-5.0); Albumin/Globulin Ratio 1.4 (1.1-1.8); Alkaline Phosphatase 104 U/L (38-126); Anion Gap 11.4 mEq/L (5-15); Aspartate Amino Transferase 33 U/L (14-36); Bilirubin,Total 0.7 mg/dl (0.2-1.3); Blood Urea Nitrogen 11 mg/dl (7-17); Calcium 8.8 mg/dl (8.4-10.2); Carbon Dioxide 28 mmol/L (22.0-30.0); Chloride 102 mmol/L (98-107); Chol/HDL Ratio 7.2 (1-3.5); Cholesterol 258 mg/dl (140-200); Estimated Glomerular Filt Rate 93 ml/min (>60); GFR (African American) 113 ML/MIN (>60); Globulin 3.1 g/dL (1.3-3.2); Glucose 101 mg/dl (74-100); HDL Cholesterol 36 mg/dl (40-60); Potassium 3.4 mmoL/L (3.5-5.1); Sodium 138 mmol/L (136-145); Total Protein,Serum 7.4 g/dl (6.3-8.2); Triglycerides 219 mg/dl (30-150); VLDL Cholesterol 44 mg/dL (0-40)
[2023-04-29 19:03] LABS: Direct LDL Cholesterol 156.55 mg/dL (100-129)
[2023-04-29 19:20] LABS: Thyroid Stimulating Hormone 4.75 uIU/mL (0.465-4.68)
== END 2023-04-29 23:59 ==
LOC: LAB.DROPOF 18:24
PROVIDERS: PCP Family Medicine; Visit Provider Family Medicine
DX: E03.9 Hypothyroidism, unspecified (principal); I10 Essential (primary) hypertension; E66.9 Obesity, unspecified; Z68.39 Body mass index [BMI] 39.0-39.9, adult; Z72.0 Tobacco use
CPT/HCPCS: 80053; 80061; 84443

== ENCOUNTER 2023-07-29 18:00 | Outpatient (CLI) | payer OTHER, SELFPAY ==
[2023-07-29 18:24] LABS: Chloride 105 mmol/L (98-107)
[2023-07-29 18:25] LABS: Potassium 4.1 mmoL/L (3.5-5.1); Sodium 138 mmol/L (136-145)
[2023-07-29 18:27] LABS: Alanine Aminotransferase 32 U/L (12-78); Albumin Level 4.2 g/dl (3.5-5.0); Albumin/Globulin Ratio 1.4 (1.1-1.8); Alkaline Phosphatase 99 U/L (38-126); Anion Gap 13.1 mEq/L (5-15); Aspartate Amino Transferase 34 U/L (14-36); Bilirubin,Total 0.6 mg/dl (0.2-1.3); Blood Urea Nitrogen 10 mg/dl (7-17); Carbon Dioxide 24 mmol/L (22.0-30.0); Estimated Glomerular Filt Rate 93 ml/min (>60); GFR (African American) 113 ML/MIN (>60); Total Protein,Serum 7.2 g/dl (6.3-8.2)
[2023-07-29 18:28] LABS: Calcium 9.4 mg/dl (8.4-10.2); Chol/HDL Ratio 7.3 (1-3.5); Cholesterol 270 mg/dl (140-200); Glucose 92 mg/dl (74-100); HDL Cholesterol 37 mg/dl (40-60); Triglycerides 167 mg/dl (30-150); VLDL Cholesterol 33 mg/dL (0-40)
[2023-07-29 18:49] LABS: Direct LDL Cholesterol 174.74 mg/dL (100-129)
[2023-07-29 18:54] LABS: Thyroid Stimulating Hormone 0.26 uIU/mL (0.465-4.68)
== END 2023-07-29 23:59 | disposition home or self-care (01) ==
LOC: LAB.DROPOF 07-30 10:13
PROVIDERS: PCP Family Medicine; Visit Provider Family Medicine
DX: E03.9 Hypothyroidism, unspecified (principal); I10 Essential (primary) hypertension; F17.200 Nicotine dependence, unspecified, uncomplicated
CPT/HCPCS: 80053; 80061; 84443

== ENCOUNTER 2023-11-27 10:03 | Outpatient (CLI) | payer OTHER, SELFPAY ==
[2023-11-27 18:35] LABS: Alanine Aminotransferase 20 U/L (12-78); Albumin/Globulin Ratio 1.4 (1.1-1.8); Alkaline Phosphatase 74 U/L (38-126); Anion Gap 5.5 mEq/L (5-15); Aspartate Amino Transferase 26 U/L (14-36); Bilirubin,Total 0.5 mg/dl (0.2-1.3); Blood Urea Nitrogen 6 mg/dl (7-17); Calcium 9.1 mg/dl (8.4-10.2); Carbon Dioxide 24 mmol/L (22.0-30.0); Chloride 108 mmol/L (98-107); Chol/HDL Ratio 4.4 (1-3.5); Cholesterol 228 mg/dl (140-200); Estimated Glomerular Filt Rate 93 ml/min (>60); GFR (African American) 113 ML/MIN (>60); Globulin 2.8 g/dL (1.3-3.2); Glucose 95 mg/dl (74-100); HDL Cholesterol 52 mg/dl (40-60); Potassium 4.5 mmoL/L (3.5-5.1); Sodium 133 mmol/L (136-145); Total Protein,Serum 6.8 g/dl (6.3-8.2); Triglycerides 137 mg/dl (30-150); VLDL Cholesterol 27 mg/dL (0-40)
[2023-11-27 18:46] LABS: Direct LDL Cholesterol 158.64 mg/dL (100-129)
[2023-11-27 19:06] LABS: Thyroid Stimulating Hormone 2.65 uIU/mL (0.465-4.68)
== END 2023-11-27 23:59 | disposition home or self-care (01) ==
LOC: LAB.DROPOF 11-28 10:03
PROVIDERS: PCP Family Medicine; Visit Provider Family Medicine
DX: E03.9 Hypothyroidism, unspecified (principal); I10 Essential (primary) hypertension; Z72.0 Tobacco use
CPT/HCPCS: 80053; 80061; 84443

== ENCOUNTER 2024-03-23 11:40 | Outpatient (CLI) | payer OTHER, SELFPAY ==
[2024-03-23 20:52] LABS: Alanine Aminotransferase 25 U/L (12-78); Albumin Level 3.7 g/dl (3.5-5.0); Albumin/Globulin Ratio 1.5 (1.1-1.8); Alkaline Phosphatase 91 U/L (38-126); Anion Gap 13.5 mEq/L (5-15); Aspartate Amino Transferase 29 U/L (14-36); Bilirubin,Total 0.2 mg/dl (0.2-1.3); Blood Urea Nitrogen 6 mg/dl (7-17); Calcium 8.4 mg/dl (8.4-10.2); Carbon Dioxide 24 mmol/L (22.0-30.0); Chloride 106 mmol/L (98-107); Cholesterol 133 mg/dl (140-200); Estimated Glomerular Filt Rate 79 ml/min (>60); GFR (African American) 96 ML/MIN (>60); Globulin 2.4 g/dL (1.3-3.2); Glucose 92 mg/dl (74-100); HDL Cholesterol 33 mg/dl (40-60); Potassium 3.5 mmoL/L (3.5-5.1); Sodium 140 mmol/L (136-145); Total Protein,Serum 6.1 g/dl (6.3-8.2); Triglycerides 117 mg/dl (30-150); VLDL Cholesterol 23 mg/dL (0-40)
[2024-03-23 21:03] LABS: Direct LDL Cholesterol 75.73 mg/dL (100-129)
[2024-03-23 21:40] LABS: Thyroid Stimulating Hormone 0.28 uIU/mL (0.465-4.68)
== END 2024-03-23 23:59 | disposition home or self-care (01) ==
LOC: LAB.DROPOF 03-24 09:46
PROVIDERS: PCP Family Medicine; Visit Provider Family Medicine
DX: I10 Essential (primary) hypertension (principal); E03.9 Hypothyroidism, unspecified; Z72.0 Tobacco use
CPT/HCPCS: 80053; 80061; 84443

== ENCOUNTER 2024-07-06 12:09 | Outpatient (CLI) | payer OTHER, SELFPAY ==
[2024-07-06 20:47] LABS: Albumin Level 4.3 g/dl (3.5-5.0); Chloride 108 mmol/L (98-107)
[2024-07-06 20:48] LABS: Potassium 3.8 mmoL/L (3.5-5.1); Sodium 138 mmol/L (136-145)
[2024-07-06 20:50] LABS: Alanine Aminotransferase 26 U/L (12-78); Aspartate Amino Transferase 34 U/L (14-36); Blood Urea Nitrogen 9 mg/dl (7-17); Estimated Glomerular Filt Rate 111 ml/min (>60); GFR (African American) 134 ML/MIN (>60)
[2024-07-06 20:51] LABS: Albumin/Globulin Ratio 1.6 (1.1-1.8); Alkaline Phosphatase 94 U/L (38-126); Anion Gap 12.8 mEq/L (5-15); Bilirubin,Total 0.6 mg/dl (0.2-1.3); Calcium 9.2 mg/dl (8.4-10.2); Carbon Dioxide 21 mmol/L (22.0-30.0); Globulin 2.7 g/dL (1.3-3.2); Glucose 97 mg/dl (74-100)
[2024-07-06 21:30] LABS: Thyroid Stimulating Hormone 0.14 uIU/mL (0.465-4.68)
[2024-07-06 21:39] LABS: HIV Combo NEGATIVE (Negative)
[2024-07-06 21:49] LABS: Hepatitis C Ab Qual. W/ RFX NEGATIVE (Negative)
== END 2024-07-06 23:59 | disposition home or self-care (01) ==
LOC: LAB.DROPOF 20:51
PROVIDERS: PCP Family Medicine; Visit Provider Family Medicine
DX: Z11.59 Encounter for screening for other viral diseases (principal); Z11.4 Encounter for screening for human immunodeficiency virus [HIV]; I10 Essential (primary) hypertension; F17.200 Nicotine dependence, unspecified, uncomplicated
CPT/HCPCS: 80053; 84443; 86803; 87389

== ENCOUNTER 2024-12-02 17:09 | Emergency (ER) | payer OTHER, SELFPAY ==
[2024-12-02 17:18] VITALS: BP 149/81; PULSE 79; RESP 15; TEMP 36.7; O2SAT 99; BMI 35.9
--- NOTE | 2024-12-02 17:20 | XR_ITS ---
PROCEDURE INFORMATION: Exam: XR Right Foot Exam date and time: 12/02/2024 5:21 PM Age: 38 years old Clinical indication: Injury or trauma; Fall; Blunt trauma; Lower leg and ankle and heel; Right TECHNIQUE: Imaging protocol: Radiologic exam of the right foot. Views: 1 or 2 views. COMPARISON: No relevant prior studies available. FINDINGS: Bones/joints: No acute fracture or dislocation. Soft tissues: Normal. IMPRESSION: No acute fracture or dislocation.
--- NOTE | 2024-12-02 17:20 | XR_ITS ---
PROCEDURE INFORMATION: Exam: XR Right Ankle Exam date and time: 12/02/2024 5:23 PM Age: 38 years old Clinical indication: Injury or trauma; Fall; Blunt trauma; Lower leg and ankle and heel; Right TECHNIQUE: Imaging protocol: Radiologic exam of the right ankle. Views: 3 or more views. COMPARISON: CR XR FOOT RT 2V 12/02/2024 5:21 PM FINDINGS: Bones/joints: No acute fracture or dislocation. Soft tissues: Normal. IMPRESSION: No acute fracture or dislocation.
--- NOTE | 2024-12-02 17:20 | XR_ITS ---
PROCEDURE INFORMATION: Exam: XR Right Tibia and Fibula Exam date and time: 12/02/2024 5:24 PM Age: 38 years old Clinical indication: Injury or trauma; Fall; Blunt trauma; Lower leg and ankle and heel; Right TECHNIQUE: Imaging protocol: Radiologic exam of the right tibia and fibula. Views: 2 views. COMPARISON: CR XR ANKLE RT MIN 3V 12/02/2024 5:23 PM FINDINGS: Bones/joints: No acute fracture or dislocation. Soft tissues: Normal. IMPRESSION: No acute fracture or dislocation.
--- OUTSIDE RECORDS SUMMARY | 2024-12-02 17:24 | XMS_ITS | Clinical Summary ---
Author Organization [facility] Address [address] [place] [address] Phone Care Team Providers Care Cook Cold Meat Name Role Phone Viviana Jones MD Unavailable [phone] Allergies No known active allergies Medications diclofenac (VOLTAREN) 75 mg EC tabletIndicatio ns:Neck strain, initial encounter Take 1 Tab by mouth 2 times daily (with meals). 60 Tab 2 4 Active Additional Information Patient not taking.Reason: Pt electing to not take the medication, Reported on 04/21/2018 rizatriptan (MAXALT) 10 mgIndications:M igraine Take 1 Tab by mouth once as needed (migraine) for up to 1 dose. May repeat in 2 hours if needed 12 Tab 2 4 Active Additional Information Patient not taking.Reason: Pt electing to not take the medication, Reported on 04/21/2018 pantoprazole (PROTONIX) 40 mg Oral Tablet, Delayed Release (E.C.)Indicatio ns:Abdominal pain Take 1 tablet by mouth daily. 30 tablet 2 4 Active Additional Information Patient not taking.Reason: Pt electing to not take the medication, Reported on 04/21/2018 dicyclomine (BENTYL) 20 mg Oral Tablet Take 1 tablet by mouth 3 times daily as needed for Pain. 60 tablet 0 4 Active Additional Information Patient not taking.Reason: Pt electing to not take the medication, Reported on 04/21/2018 LEVOthyroxine (SYNTHROID) 112 mcg Oral Tablet Take 112 mcg by mouth daily. Active gabapentin (NEURONTIN) 600 mg Oral Tablet Take 600 mg by mouth 3 times daily. Active Active Problems Problem Noted Date Diagnosed Date Migraine 07/02/2013 Biliary colic 09/24/2012 Immunizations Immunization Administration Dates Next Due Influenza Vaccine Quadrivalent 12/07/2013 Surgical History Surgery Date Site/Laterality Comments TUBAL LIGATION CHOLECYSTECTOMY, LAPAROSCOPIC 05/07/2013 N/A LAPAROSCOPIC CHOLECYSTECTOMY ; Surgeon: Laura De La Fuente MD; Location: [facility] MAIN OR; Service: General Medical History Medical History Date Comments Hypertension Heart murmur Heartburn Constipation Headache(784.0) Anemia Social History Tobacco Use Types Packs/Day Years Used Date Smoking Tobacco: Never Smokeless Tobacco: Never Tobacco Cessation:Counseling Given: No Alcohol Use Standard Drinks/Week Comments No 0 (1 standard drink = 0.6 oz pur e alcohol) Sexually Active Control Partners Comments Yes Male Comments No Sex and Gender Information Value Date Recorded Sex Assigned at Not on file Legal Sex Female 7:12 AM EDT Gender Identity Not on file Sexual Orientation Not on file Obstetrics History Para Term AB IAB SAB Ectopic Multiple Livin g Live Births 3 3 3 Date Outcome GA Total Labor Labor/2nd/3rd Weight Sex Type Anes PTL Coty A1 A5 Name Clin 2003 Para 39w4 d 5 lb 8 oz (2.495 kg) F Vag-Sp ont 2004 Para 40w0 d 6 lb (2.722 kg) F Vag-Sp ont 2007 Para 40w0 d 6 lb 5 oz (2.863 kg) F Vag-Sp ont Last Filed Vital Signs Vital Sign Reading Time Taken Comments Blood Pressure 137/88 04/21/2018 6:55 PM EST Pulse 95 04/21/2018 5:38 PM EST Temperature 36.9 C (98.5 F) 04/21/2018 5:38 PM EST Respiratory Rate 20 04/21/2018 5:38 PM EST Oxygen Saturation 99% 04/21/2018 5:38 PM EST Inhaled Oxygen Concentration - - Weight 79.4 kg (175 lb) 04/21/2018 5:38 PM EST Height 152.4 cm (5') 04/21/2018 5:38 PM EST Body Mass Index 34.18 04/21/2018 5:38 PM EST Plan of Treatment Health Maintenance Due Date Last Done Comments Annual Wellness Exam 12/30/1986 DTaP/TDaP/Td (1 - Tdap) 12/30/2002 Hepatitis B Vaccine (1 of 3 - 19+ 3-dose series) 12/30/2002 HPV/Pap Cotest 12/30/2013 Cervical Cancer Screening 2016 Pap Smear 2016 2013 Breast Cancer Screening 2023 COVID-19 Vaccine (1 - 2023-2 5 season) 2024 Influenza Vaccine (#1) 2024 12/07/2013 Meningococcal B Vaccine Aged Out No l onger eligible based on patient's age to complete this topic Pneumococcal Vaccine 0-49 Aged Out No longer eligible based on patient's age to complete this topic Procedures Procedure Name Priority Date/Time Associated Diagnosis Comments [facility] REPORT Routine 2013 4 :20 AM EST from Last 3 Months or Most Recently Relevant to Health Maintenance Results * [facility] CYT[facility] REPORT (2013 4:20 AM EST) [employer] Cytology Report PATIENT NAME:ROSANGELA THOMSON Senior [employer] Cytology Report Accession Number Collected Date/Time Received Date/Time [id number] 12/31/13 04:20 EST 01/01/14 03:45 EST GY Specimen Source Specimen Vag/Cerv/Endocx?: Vag/Cerv/Endocerv Statement of Adequacy Satisfactory for Evaluation. Transformation Zone Present. Diagnosis NEGATIVE FOR INTRAEPITHELIAL LESION OR MALIGNANCY. Comment Note: Concurrent High-Risk HPV DNA testing is NEGATIVE. The Pap Smear is a screening test that aids in the detection of cervical cancer and cancer precursors. Both false positive and false negative results can occur. The test should be used at regular intervals, and positive results should be confirmed before definitive therapy. Processed using the [employer] Development Coordinator automated cytology screening device ([facility] [facility]). Academic Coach: HE 01/06/2014 Completed by: SOFY Parmar (Electronically signed by) 01/06/2014 [facility] 2013 4:20 AM EST us Viviana Jones MD PATHOLOGY ORDERABLES Final R esult [facility] [address] [place] [address] from Last 3 Months or Most Recently Relevant to Health Maintenance Insurance [employer] on file [id number] [place] [id number] Care Teams Cook Cold Meat Relationship Specialty Start Date End Date Viviana Jones MD [address] [place] [address] Physician Obstetrics & Gynecology 12/31/13
--- NOTE | 2024-12-02 18:32 | HMH.EDGENADL ---
Discharge Plan Disposition Patient Disposition: Home, Self-Care Condition: Good Prescriptions Prescriptions: No Action atorvastatin 10 mg tablet 40 mg PO DAILY rosuvastatin 40 mg tablet 40 mg PO DAILY Qty: 90 3RF losartan 100 mg tablet 100 mg PO DAILY Qty: 90 3RF levothyroxine [Synthroid] 150 mcg tablet 150 mcg PO DAILY Qty: 90 3RF desvenlafaxine succinate [Pristiq] 50 mg tablet extended release 24 hr 50 mg PO DAILY Qty: 90 3RF albuterol sulfate 90 mcg/actuation HFA aerosol inhaler 2 puff inhalation Q4-6H PRN (Reason: shortness of breath or wheezing) Qty: 8.5 12RF Rx Instructions: please provide spacer and instruct ondansetron HCl 4 mg tablet 4 mg PO TID Qty: 90 0RF ergocalciferol (vitamin D2) 1,250 mcg (50,000 unit) capsule See Rx Instructions .ROUTE .COMPLEX Qty: 14 0RF Dose Instruction: TAKE 1 CAPSULE BY MOUTH ONCE A WEEK Rx Instructions: TAKE 1 CAPSULE BY MOUTH ONCE A WEEK furosemide [Lasix] 40 mg tablet 40 mg PO DAILY PRN (Reason: edema) Qty: 30 3RF doxepin 25 mg capsule 25 mg PO HS PRN (Reason: sleep) Qty: 30 3RF potassium chloride 10 mEq tablet,ER particles/crystals 10 meq PO DAILY Qty: 90 3RF loratadine 10 mg tablet See Rx Instructions .ROUTE .COMPLEX Qty: 90 1RF Dose Instruction: Take 1 Tablet by mouth once daily. Rx Instructions: Take 1 Tablet by mouth once daily. Referrals Follow up/Referrals: Florin Garcia MD [Primary Care Provider, Family Practice] - See instructions Activity Restrictions/Add. Instructions Additional Instructions/Restrictions: You likely have an ankle sprain. I want you to take ibuprofen and Tylenol for pain. You may wear the boot for comfort. If any new or worsening symptoms please return. Clinical Impressions Clinical Impression: Acute right ankle pain Print Language Print Language: Slovenian Discharge ED Provider: Daniel Dolan Adult HPI General Chief complaint: Extremity Injury, Lower Stated complaint: AO 12-02 fell and hurt right leg Time Seen by Provider: 12/02/24 17:16 Mode of Arrival: Wheelchair Source of Information: Patient Description of Symptoms (Recalled from ER Triage Doc. by RN): patient states she tripped and fell about 30 mins ago hurting her right leg. 08/27 pain. History of Present Illness HPI narrative: This is a 38-year-old female patient, with past medical history of hypothyroidism and hypertension, who is presenting to the emergency department today for evaluation of right ankle pain. Patient states that she was walking down a hill and she tripped and fell. She describes her ankle being bent underneath her. Since that time she has been having significant pain along the medial aspect of the right ankle. She states she has been able to walk but it is painful to bear weight. She has had no motor deficits or sensory deficit since the fall Related Data Home Medications ?Medication ?Instructions ?Recorded ?Confirmed atorvastatin 10 mg tablet 40 mg PO DAILY 11/27/23 10/01/24 Previous Rx's ?Medication ?Instructions ?Recorded ergocalciferol (vitamin D2) 1,250 See Rx Instructions .Route 11/05/19 mcg (50,000 unit) capsule .COMPLEX #14 caps levothyroxine 150 mcg tablet 150 mcg PO DAILY #90 tabs 03/23/24 (Synthroid) losartan 100 mg tablet 100 mg PO DAILY #90 tabs 03/23/24 rosuvastatin 40 mg tablet 40 mg PO DAILY #90 tabs 03/23/24 doxepin 25 mg capsule 25 mg PO HS PRN sleep #30 caps 08/11/24 furosemide 40 mg tablet (Lasix) 40 mg PO DAILY PRN edema #30 tabs 08/11/24 potassium chloride 10 mEq 10 meq PO DAILY #90 tabs 08/11/24 tablet,extended release(part/cryst) albuterol sulfate 90 mcg/actuation 2 puff inhalation Q4-6H PRN 10/01/24 aerosol inhaler shortness of breath or wheezing #8.5 grams desvenlafaxine succinate 50 mg 50 mg PO DAILY #90 tabs 10/01/24 tablet,extended release 24 hr (Pristiq) ondansetron HCl 4 mg tablet 4 mg PO TID #90 tabs 10/01/24 loratadine 10 mg tablet See Rx Instructions .Route 11/26/24 .COMPLEX #90 tabs Allergies Allergy/AdvReac Type Severity Reaction Status Date / Time acetaminophen (From Allergy Nausea Verified 10/01/24 09:44 Tylenol-Codeine #3) codeine AdvReac Nausea Verified 10/01/24 09:44 PFSH [facility] Disclaimer: The information contained in this section may have been updated after the patient was seen, as this information can be updated by other users. Medical History Neuropathy Daytime somnolence Dyspnea Hypothyroidism Surgical History History of thyroidectomy History of cholecystectomy History of partial hysterectomy Family History Other Asthma Social History (Updated 10/01/24 @ 09:46 by Elizabeth Diaz MA) Smoking Status: Current every day smoker alcohol intake: current alcohol intake frequency: holidays/special occasions only substance use type: denies use current occupational status: unemployed Travel in the last 8 weeks?: None household members: significant other housing: apartment caffeine: Yes Have you lived/traveled outside US in past 30 days?: No Contact w/someone who lives/traveled outside US past 30 days?: No Exposure to someone with infectious disease in past 14 days?: No Do you have a fever (greater than 100.4 F or 38 C)?: No Have you tested positive for COVID-19?: No Exposed to someone with COVID-19 in past 14 days?: No Do you have a sore throat?: No Do you have a cough?: No Do you have any weakness?: No Do you have any diarrhea?: No Are you experiencing any unusual bleeding?: No Do you have any muscle aches/pain?: No Do you have any abdominal pain?: No Are you experiencing loss of taste or smell?: No Other Medical History Have you received the Flu Vaccine for this season: No Have you received the Pneumonia Vaccine: No ROS Obtained: Yes Systems reviewed as appropriate & no additional complaints except as documented Physical Exam General General appearance: other (See MDM) Respiratory Respiratory exam: Present other (See MDM) Cardiovascular Cardiovascular exam: Present other (See MDM) Neurological Exam Neurological exam: Present other (See MDM) Medical Decision Making Medical Records Medical records reviewed: Yes I reviewed the patient's medical records. Screening: Per USPSTF and CDC recommendations, given the prevalence of disease in our region, it is our hospital?s policy to screen for HIV and viral Hepatitis for all patients aged 18 and over and those with ongoing risk factors. Thong Inquiry Pt receiving controlled substance: No Thong was queried for this patient: No Vital Signs: 12/02/24 17:18 Temperature 98.1 F Temperature Source Oral Pulse Rate [Right Radial] 79 Respiratory Rate 15 Blood Pressure [Right Arm] 149/81 H Blood Pressure Mean [Right Arm] 103 Blood Pressure Source [Right Arm] Automatic Cuff Blood Pressure Position [Right Arm] Supine 02 Sat by Pulse Oximetry 99 Oxygen Delivery Method Room Air Orders (Tests/Meds): ED MEDICATIONS Discontinued Medications Generic Name Dose Route Start Last Admin Trade Name Freq PRN Reason Stop Dose Admin Ondansetron HCl 4 mg 12/02/24 18:19 Ondansetron 4mg Odt SL 12/02/24 18:20 ONCE ONE Oxycodone HCl 5 mg 12/02/24 18:19 Oxycodone 5mg Immediate Release Tablet PO 12/02/24 18:20 ONCE ONE ORDERS Category Date Time Status Ankle XR -Right minimum 3 Views [XR ankle RT min 3V] Exams 12/02/24 17:20 Completed Stat Fibula/tibia XR right 2 views [XR tibia fibula RT 2V] Exams 12/02/24 17:20 Completed Stat Foot XR right 2 views [XR foot RT 2V] Stat Exams 12/02/24 17:20 Completed Medical Decision Narrative: In summary this is a 38-year-old female patient who is presenting to the emergency department today for evaluation of a right ankle injury. Patient describes falling and having her ankle bent underneath her leg. She has a past medical history that consist of hypothyroidism and hypertension. On initial evaluation of the patient they were resting comfortably in no acute distress and nontoxic in appearance. They are hemodynamically stable, saturating well room air, and are neurologically intact. On physical examination of the right lower extremity she has tenderness along the medial malleolus. No swelling or ecchymosis noted. She has full range of motion of the ankle and is able to move all 5 toes without difficulty. No motor deficits exhibited on exam. She has normal sensation in all terminal nerve distributions of the foot. She has no tenderness about the knee or the femur. Pelvis is stable and nontender to palpation. Differential diagnosis includes medial malleolus fracture, ankle sprain, lateral malleolus fracture, foot fracture, among others. Workup was initiated with x-rays of the right foot, right ankle, and right tib-fib. X-rays were personally turbid by me and demonstrate no bony fracture or malalignment. Official radiology read is in agreement and states that there is no acute abnormality. We have treated the patient with 5 mg of oxycodone and 4 mg of Zofran here in the emergency department. She is still having some discomfort in the ankle. I have informed her that this is likely an ankle sprain. She states that she would like to have a boot for comfort. We will discharge her with a walking boot and have her follow-up with her primary care physician. I have advised her to take Tylenol and Motrin at home for pain. At this time all questions have been answered and all parties are agreeable with the decision to discharge home. Critical Care Critical Care Time Critical Care Time: No
[2024-12-02] MEDS: ONDANSETRON 4MG ODT 4 MG SL (18:33)
[2024-12-02] MEDS: OXYCODONE 5MG IMMEDIATE RELEASE TABLET 5 MG PO (18:33)
[2024-12-02 18:43] VITALS: BP 130/85; PULSE 79; RESP 16; TEMP 36.7; O2SAT 99
== END 2024-12-02 18:44 | disposition home or self-care (01) ==
PROVIDERS: Emergency Provider Student in an Organized Health Care Education/Training Program; PCP Family Medicine
DX: M25.571 Pain in right ankle and joints of right foot (principal); W17.81XA Fall down embankment (hill), initial encounter
CPT/HCPCS: 73590; 73610; 73620; 99283; Q0162

== ENCOUNTER 2024-12-31 09:25 | Outpatient (CLI) | payer OTHER, SELFPAY ==
[2024-12-31 16:29] LABS: Thyroid Stimulating Hormone < 0.02 uIU/mL (0.465-4.68)
== END 2024-12-31 23:59 ==
LOC: LAB.DROPOF 01-04 09:25
PROVIDERS: PCP Family Medicine; Visit Provider Family Medicine
DX: E03.9 Hypothyroidism, unspecified (principal)
CPT/HCPCS: 84443

== ENCOUNTER 2025-01-06 10:22 | Outpatient (CLI) | payer OTHER, SELFPAY ==
--- NOTE | 2025-01-06 10:30 | MM_ITS ---
PROCEDURE INFORMATION: Exam: MG Bilateral Screening 3D Mammography Exam date and time: 01/06/2025 10:48 AM Age: 39 years old Clinical indication: Screening mammogram. TECHNIQUE: Imaging protocol: Bilateral Screening tomosynthesis and 2D mammography including computer-aided detection (CAD) when performed. COMPARISON: No relevant prior studies available. FINDINGS: MAMMOGRAPHY: Breast composition: There are scattered areas of fibroglandular density. Mass: None. Architectural distortion: No new or suspicious architectural distortion. Calcifications: No new or suspicious calcifications are present Asymmetric density: No new or suspicious asymmetric density is present Skin thickening: None. Axillary adenopathy: None. IMPRESSION: No mammographic evidence of malignancy. Recommend annual screening mammography unless otherwise clinically indicated. ASSESSMENT: BI-RADS category 1: Negative.
== END 2025-01-06 23:59 | disposition home or self-care (01) ==
LOC: RAD 10:23
PROVIDERS: PCP Family Medicine; Visit Provider Family Medicine
DX: Z12.31 Encounter for screening mammogram for malignant neoplasm of breast (principal); R92.323 Mammographic fibroglandular density, bilateral breasts
CPT/HCPCS: 77063; 77067